=== PATIENT | male | born 1955 | race Caucasian/White ===

== ENCOUNTER 2022-10-19 14:42 | Outpatient (CLI) | payer MEDICARE | END 2022-10-19 14:43 | disposition home or self-care (01) | LOC: TBSIIMAG 14:42 | PROVIDERS: ATTEND Neurological Surgery | DX: M54.16 Radiculopathy, lumbar region (principal); Z98.890 Other specified postprocedural states | CPT/HCPCS: 72100 ==

== ENCOUNTER 2022-11-08 12:42 | Outpatient (CLI) | payer MEDICARE, OTHER ==
[~2022-11-08 12:42] MED LIST: Magnevist 469MG/ML 20 ML VIAL ONE
== END 2022-11-08 12:43 | disposition home or self-care (01) ==
LOC: TBSIIMAG 12:42
PROVIDERS: ATTEND Neurological Surgery
DX: M54.16 Radiculopathy, lumbar region (principal); Z98.890 Other specified postprocedural states
CPT/HCPCS: 72158; 82565

== ENCOUNTER 2022-12-10 07:33 | Outpatient (CLI) | payer MEDICARE, OTHER ==
[2022-12-10] MEDS ORDERED: Iopamidol 370 76% 100 ML VIAL ONE (11:07)
== END 2022-12-10 07:34 | disposition home or self-care (01) ==
LOC: BICCT 07:33
PROVIDERS: ATTEND Surgery
DX: R18.8 Other ascites (principal); I74.5 Embolism and thrombosis of iliac artery
CPT/HCPCS: 74177; 82565; Q9967

== ENCOUNTER 2024-08-01 09:31 | Inpatient (IN) | payer MEDICARE, OTHER ==
[2024-08-01] MEDS ORDERED: Activated Charcoal (AQUA) 25 GM/120 ML TUBE ONE (10:43)
[2024-08-01 10:58] LABS: Actual Bicarbonate (HCO3v) 18.9 mEq/L (22-28); Analyzer IN Cardio ER; Base Excess -5.7 mEq/L (-2.0 to +3.0); Calcium, Ionized (venous) 1.12 mmol/L (1.16-1.32); Chloride (VBG) 102 mmol/L (98-106); Hematocrit-VBG 49 % (42.0-52.0); Hemoglobin (Hb) 16.8 g/dL (12.6-17.4); Potassium (VBG) 4.04 mmol/L (3.70-5.30); Sodium 141 mmol/L (133-146); pH (venous) 7.352 (7.32-7.43)
[2024-08-01 11:01] LABS: #Basophils 0.04 10x3/uL (0.0-0.2); %Basophils 0.4 % (0.0-1.0); %Eosinophils 0.6 % (0.0-10.0); %Lymphocytes 8.8 % (21.0-51.0); %Monocytes 3.5 % (0.0-10.0); %Neutrophils 86.4 % (42.0-75.0); Hematocrit 44.8 % (42.0-52.0); Hemoglobin 15.6 g/dL (14.0-18.0); Mean Corpuscular HGB CONC 34.8 g/dL (32.0-36.0); Mean Corpuscular Hemoglobin 31.3 pg (27.0-31.0); Mean Corpuscular Volume 89.8 fL (78.0-98.0); Mean Platelet Volume 10.5 fL (7.4-10.4); Platelet Count 277 10x3/uL (130-400); RBC Distribution Width 12.7 % (11.5-14.5); Red Blood Cell (RBC) Count 4.99 mill/uL (4.70-6.10)
[2024-08-01 11:29] LABS: ALT (SGPT) 7 U/L (8-55); AST (SGOT) 15 U/L (5-34); Albumin 4.1 g/dL (3.4-4.8); Alkaline Phosphatase 52 U/L (40-110); Anion Gap 21 mmol/L (10-20); BUN (Urea Nitrogen) 24 mg/dL (8.4-25.7); Bilirubin, Total 0.5 mg/dL (0.2-1.2); Calc. Creatinine Clearance 0 mL/min (70-130); Calcium 9.3 mg/dL (7.8-10.44); Carbon Dioxide 18 mmol/L (23-31); Chloride 106 mmol/L (98-107); Estimated GFR 77; Globulin 3.1 g/dL (2.4-3.5); Glucose 219 mg/dL (83-110); Potassium 3.6 mmol/L (3.5-5.1); Protein, Total 7.2 g/dL (5.8-8.1); Sodium 141 mmol/L (136-145)
[2024-08-01] MEDS ORDERED: CALCIUM GLUC 1 GM/NS 50 ML IV Bag ONE ×3 (11:47→12:43)
[2024-08-01] MEDS ORDERED: Magnesium 2 GM/50 ML BAG (IN WATER) ONE (11:49)
[2024-08-01] MEDS ORDERED: Acetaminophen 325 MG TAB PO PRN (12:41)
[2024-08-01] MEDS ORDERED: NS 0.9% w/ 20 MEQ KCL 1,000 ML ONE (12:44)
[2024-08-01 15:26] VITALS: BMI 30.8
[2024-08-01] MEDS: Cyanide Antidote Kit IVPB SCH (15:47)
[2024-08-01] MEDS: Calcium Gluconate 13.8 MEQ, Admixture Fee 1 EACH in Sodium Chloride 0.9% 100 ML IVPB SCH (15:48)
[2024-08-01] MEDS: Scopolamine 1 mg/72 hour Patch TD SCH ×2 (15:49→23:02)
[2024-08-01 17:42] LABS: Actual Bicarbonate (HCO3v) 23.9 mEq/L (22-28); Base Excess -1.1 mEq/L (-2.0 to +3.0); Calcium, Ionized (venous) 1.15 mmol/L (1.16-1.32); Chloride (VBG) 106 mmol/L (98-106); Hematocrit-VBG 43 % (42.0-52.0); Hemoglobin (Hb) 14.7 g/dL (12.6-17.4); Potassium (VBG) 4.42 mmol/L (3.70-5.30); Sodium 140 mmol/L (133-146)
[2024-08-01 18:07] LABS: Lactic Acid 2.78 mmol/L (0.5-2.2)
[2024-08-02 06:01] LABS: #Basophils 0.03 10x3/uL (0.0-0.2); %Basophils 0.4 % (0.0-1.0); %Eosinophils 1.5 % (0.0-10.0); %Lymphocytes 7.7 % (21.0-51.0); %Monocytes 6.9 % (0.0-10.0); %Neutrophils 83.2 % (42.0-75.0); Hematocrit 41.7 % (42.0-52.0); Hemoglobin 14.2 g/dL (14.0-18.0); Mean Corpuscular HGB CONC 34.1 g/dL (32.0-36.0); Mean Corpuscular Hemoglobin 31.3 pg (27.0-31.0); Mean Corpuscular Volume 91.9 fL (78.0-98.0); Mean Platelet Volume 10.4 fL (7.4-10.4); Platelet Count 238 10x3/uL (130-400); RBC Distribution Width 13.2 % (11.5-14.5); Red Blood Cell (RBC) Count 4.54 mill/uL (4.70-6.10)
[2024-08-02 06:27] LABS: Anion Gap 12 mmol/L (10-20); BUN (Urea Nitrogen) 18 mg/dL (8.4-25.7); Calc. Creatinine Clearance 84 mL/min (70-130); Carbon Dioxide 25 mmol/L (23-31); Chloride 111 mmol/L (98-107); Estimated GFR 78; Glucose 104 mg/dL (83-110); Potassium 4.6 mmol/L (3.5-5.1); Sodium 143 mmol/L (136-145)
[2024-08-02 07:57] VITALS: TEMP 98.3
[2024-08-02] MEDS: FLU (Fluad Triv) TS24-25 (65UP)/MF59C/PF 45 MCG/0.5 ML Syringe IM ONE (11:22)
[2024-08-02] MEDS: Enoxaparin 40 MG (0.4 mL) SYRINGE SC SCH (11:22)
[2024-08-02] MEDS: Tamsulosin HCl 0.4 MG CAP PO SCH (11:23)
[2024-08-02] MEDS: Lisinopril 5 MG TAB PO SCH (14:19)
[2024-08-02 14:42] LABS: Lactic Acid 1.86 mmol/L (0.5-2.2)
[2024-08-02 14:49] VITALS: BP 130/73
[2024-08-03] MEDS ORDERED: Lisinopril 10 MG TAB PO SCH (09:00)
[2024-08-03] MEDS ORDERED: Lisinopril 5 MG TAB PO SCH (09:00)
[2024-08-03] MEDS ORDERED: Tamsulosin HCl 0.4 MG CAP PO SCH (09:00)
== END 2024-08-02 16:25 | disposition home or self-care (01) | DRG 918 ==
LOC: ERS 09:31 → IMCU/EMU 12:23
PROVIDERS: ADMIT Internal Medicine; ATTEND Internal Medicine
DX: T65.891A Toxic effect of other specified substances, accidental (unintentional), initial encounter (principal); I10 Essential (primary) hypertension; R94.31 Abnormal electrocardiogram [ECG] [EKG]; X58.XXXA Exposure to other specified factors, initial encounter
CPT/HCPCS: 36415; 80048; 80053; 82805; 83605; 83735; 85025; 93005; 93010; 96365; 96366; 96368; 96375; J0612; J0613; J3475; J3480

== ENCOUNTER 2024-09-25 11:57 | Outpatient (CLI) | payer MEDICARE, OTHER ==
[2024-09-25 13:43] LABS: #Basophils 0.03 10x3/uL (0.0-0.2); %Basophils 0.4 % (0.0-1.0); %Monocytes 5.5 % (0.0-10.0); %Neutrophils 80.7 % (42.0-75.0); Hematocrit 47.4 % (42.0-52.0); Hemoglobin 16.1 g/dL (14.0-18.0); Mean Corpuscular Hemoglobin 30.8 pg (27.0-31.0); Mean Corpuscular Volume 90.6 fL (78.0-98.0); Mean Platelet Volume 10.2 fL (7.4-10.4); Platelet Count 282 10x3/uL (130-400); RBC Distribution Width 11.9 % (11.5-14.5); Red Blood Cell (RBC) Count 5.23 mill/uL (4.70-6.10)
[2024-09-25 13:58] LABS: Prothrombin Time 12.8 sec (12.0-14.7)
[2024-09-25 14:07] LABS: Anion Gap 15 mmol/L (10-20); BUN (Urea Nitrogen) 15 mg/dL (8.4-25.7); Calc. Creatinine Clearance 0 mL/min (70-130); Calcium 9.7 mg/dL (7.8-10.44); Carbon Dioxide 21 mmol/L (23-31); Chloride 108 mmol/L (98-107); Estimated GFR 92; Glucose 100 mg/dL (83-110); Potassium 4.3 mmol/L (3.5-5.1); Sodium 140 mmol/L (136-145)
== END 2024-09-25 11:58 | disposition home or self-care (01) ==
LOC: LABBT 11:57
PROVIDERS: ATTEND Urology
DX: Z01.812 Encounter for preprocedural laboratory examination (principal); N28.89 Other specified disorders of kidney and ureter
CPT/HCPCS: 80048; 85025; 85610; 85730; 87086

== ENCOUNTER 2024-10-02 05:58 | Observation (INO) | payer MEDICARE, OTHER ==
[2024-09-25 12:25] VITALS: BMI 28.4
[2024-10-02] MEDS ORDERED: Iopamidol 15 ML ONE (06:48)
[2024-10-02] MEDS ORDERED: Lidocaine 2% PF 100 mg/5 ml Syringe ONE (06:59)
[2024-10-02] MEDS ORDERED: PROPOFOL 20 ML ONE (07:00)
[2024-10-02] MEDS ORDERED: fentaNYL PF 100 MCG/2 ML SYRINGE ONE (07:00)
[2024-10-02] MEDS ORDERED: Lidocaine 2% PF 5 ML VIAL ONE (07:00)
[2024-10-02] MEDS ORDERED: CEFAZOLIN 2 GM VIAL ONE (07:17)
[2024-10-02] MEDS ORDERED: Sodium Chloride 0.9% 100 ML ONE (07:18)
[2024-10-02] MEDS ORDERED: Dexamethasone 20 MG/5 ML VIAL ONE (07:35)
[2024-10-02] MEDS ORDERED: Ondansetron PF 4 MG/2 ML Vial ONE (07:35)
[2024-10-02] MEDS ORDERED: ePHEDrine Sulfate 50 MG/10 ML VIAL ONE (07:38)
[2024-10-02] MEDS ORDERED: Morphine 2 MG/ML VIAL SLOW IVP PRN (09:15)
[2024-10-02] MEDS ORDERED: Ondansetron PF 4 MG/2 ML Vial IVP PRN (09:15)
[2024-10-02] MEDS ORDERED: HYDROcodone/Acetaminophen 5/325 mg Tablet PO PRN ×4 (09:15→13:25)
[2024-10-02] MEDS ORDERED: Promethazine HCl 25 MG/ML VIAL IVPB PRN (09:15)
[2024-10-02] MEDS ORDERED: HYDROcodone/Acetaminophen 5/325 mg Tablet ONE ×2 (09:21→13:13)
[2024-10-02] MEDS ORDERED: Ondansetron ODT 4 MG TAB ONE (13:13)
[2024-10-02 13:21] LABS: #Basophils Less than 0.03 10x3/uL (0.0-0.2); #Eosinophils Less than 0.03 10x3/uL (0.0-0.7); %Basophils 0.2 % (0.0-1.0); %Lymphocytes 1.8 % (21.0-51.0); %Neutrophils 96.7 % (42.0-75.0); Hematocrit 39.6 % (42.0-52.0); Hemoglobin 13.8 g/dL (14.0-18.0); Mean Corpuscular HGB CONC 34.8 g/dL (32.0-36.0); Mean Corpuscular Hemoglobin 31.6 pg (27.0-31.0); Mean Corpuscular Volume 90.6 fL (78.0-98.0); Mean Platelet Volume 9.7 fL (7.4-10.4); Platelet Count 240 10x3/uL (130-400); RBC Distribution Width 11.9 % (11.5-14.5); Red Blood Cell (RBC) Count 4.37 mill/uL (4.70-6.10)
[2024-10-02] MEDS ORDERED: Ondansetron ODT 4 MG TAB PO PRN (13:24)
[2024-10-02] MEDS ORDERED: Acetaminophen 325 MG TAB PO PRN ×2 (13:24)
[2024-10-02] MEDS: D5 1/2 NS w/20 mEq KCL 1,000 ML IV SCH (14:00)
[2024-10-02] MEDS ORDERED: traMADol HCl 50 MG TAB ONE (15:33)
[2024-10-02] MEDS ORDERED: traMADol HCl 50 MG TAB PO PRN (20:02)
[2024-10-02] MEDS: Tamsulosin HCl 0.4 MG CAP PO SCH (21:20)
[2024-10-02] MEDS: Lisinopril 5 MG TAB PO SCH (21:20)
[2024-10-02] MEDS: traMADol HCl 50 MG TAB PO PRN (21:21)
[2024-10-02] MEDS: traMADol HCl 50 MG TAB PO SCH (21:31)
[2024-10-03 05:04] LABS: #Basophils Less than 0.03 10x3/uL (0.0-0.2); #Eosinophils Less than 0.03 10x3/uL (0.0-0.7); %Basophils 0.1 % (0.0-1.0); %Lymphocytes 4.1 % (21.0-51.0); %Monocytes 7.5 % (0.0-10.0); %Neutrophils 87.7 % (42.0-75.0); Hematocrit 39.1 % (42.0-52.0); Hemoglobin 13.2 g/dL (14.0-18.0); Mean Corpuscular HGB CONC 33.8 g/dL (32.0-36.0); Mean Corpuscular Hemoglobin 31.5 pg (27.0-31.0); Mean Corpuscular Volume 93.3 fL (78.0-98.0); Mean Platelet Volume 9.9 fL (7.4-10.4); Platelet Count 229 10x3/uL (130-400); RBC Distribution Width 12.3 % (11.5-14.5); Red Blood Cell (RBC) Count 4.19 mill/uL (4.70-6.10)
[2024-10-03 05:19] LABS: Anion Gap 12 mmol/L (10-20); BUN (Urea Nitrogen) 18 mg/dL (8.4-25.7); Calc. Creatinine Clearance 95 mL/min (70-130); Calcium 8.3 mg/dL (7.8-10.44); Carbon Dioxide 21 mmol/L (23-31); Chloride 104 mmol/L (98-107); Estimated GFR 93; Glucose 131 mg/dL (83-110); Potassium 4.4 mmol/L (3.5-5.1); Sodium 133 mmol/L (136-145)
[2024-10-03 08:44] VITALS: BP 139/75; TEMP 97.7
== END 2024-10-03 11:48 | disposition home or self-care (01) ==
LOC: SDC 05:58 → SURG B 12:58
PROVIDERS: ADMIT Urology; ATTEND Urology
PROC: 0T778DZ Dilation of Left Ureter with Intraluminal Device, Via Natural or Artificial Opening Endoscopic (ICD-10-PCS; principal; 2024-10-02)
DX: C65.2 Malignant neoplasm of left renal pelvis (principal); N40.0 Benign prostatic hyperplasia without lower urinary tract symptoms; N35.919 Unspecified urethral stricture, male, unspecified site; I10 Essential (primary) hypertension; I25.10 Atherosclerotic heart disease of native coronary artery without angina pectoris; E78.00 Pure hypercholesterolemia, unspecified; F32.A Depression, unspecified; F41.9 Anxiety disorder, unspecified; M19.90 Unspecified osteoarthritis, unspecified site; J45.909 Unspecified asthma, uncomplicated; Z95.5 Presence of coronary angioplasty implant and graft; Z85.828 Personal history of other malignant neoplasm of skin; Z90.89 Acquired absence of other organs; Z88.0 Allergy status to penicillin; Z91.018 Allergy to other foods; Z79.899 Other long term (current) drug therapy
CPT/HCPCS: 52332; 74420; 80048; 85025 ×2; C2617; J1100; J2003; J2405; J2704; J3480 ×2; Q0162; Q9967; 36415; 88112; 88305

== ENCOUNTER 2025-03-19 08:41 | Outpatient (CLI) | payer MEDICARE, OTHER ==
[2025-03-19 09:53] LABS: Anion Gap 15 mmol/L (10-20); BUN (Urea Nitrogen) 29 mg/dL (8.4-25.7); Calc. Creatinine Clearance 0 mL/min (70-130); Calcium 9.1 mg/dL (7.8-10.44); Carbon Dioxide 21 mmol/L (23-31); Chloride 106 mmol/L (98-107); Glucose 105 mg/dL (83-110); INR-International Normal Ratio 1.0; Potassium 4.4 mmol/L (3.5-5.1); Prothrombin Time 13.6 sec (12.0-14.7); Sodium 138 mmol/L (136-145)
[2025-03-19 09:54] LABS: PTT 26.7 sec (22.9-36.1)
[2025-03-19 10:10] LABS: #Basophils Less than 0.03 10x3/uL (0.0-0.2); #Eosinophils 0.11 10x3/uL (0.0-0.7); #Monocytes 0.32 10x3/uL (0.11-0.59); #Neutrophils 4.82 10x3/uL (1.40-6.50); %Basophils 0.3 % (0.0-1.0); %Eosinophils 1.9 % (0.0-10.0); %Lymphocytes 10.8 % (21.0-51.0); %Monocytes 5.4 % (0.0-10.0); %Neutrophils 81.4 % (42.0-75.0); Hematocrit 44.0 % (42.0-52.0); Hemoglobin 14.5 g/dL (14.0-18.0); Mean Corpuscular Hemoglobin 30.2 pg (27.0-31.0); Mean Corpuscular Volume 91.7 fL (78.0-98.0); Platelet Count 236 10x3/uL (130-400); Red Blood Cell (RBC) Count 4.80 mill/uL (4.70-6.10); White Blood Cell (WBC) Count 5.88 10x3/uL (4.8-10.8)
[2025-03-19 10:55] LABS: Burr Cells SLIGHT = 2-5 cells HPF (0-1); Platelet Adequacy Comment Platelets Normal; Polychromasia SLIGHT = 2-3 cells HPF (0-2)
== END 2025-03-19 08:42 | disposition home or self-care (01) ==
LOC: LABBT 08:41
PROVIDERS: ATTEND Urology
DX: Z01.818 Encounter for other preprocedural examination (principal); C65.2 Malignant neoplasm of left renal pelvis
CPT/HCPCS: 80048; 85025; 85610; 85730; 87086; 93005; 93010

== ENCOUNTER 2025-03-26 11:14 | Observation (INO) | payer MEDICARE, OTHER ==
[2025-03-26] MEDS ORDERED: LevoFLOXacin D5W 500 mg (100 mL) BAG ONE (12:33)
[2025-03-26] MEDS ORDERED: Lidocaine 2% PF 100 mg/5 ml Syringe ONE (15:06)
[2025-03-26] MEDS ORDERED: Ondansetron PF 4 MG/2 ML Vial ONE (15:06)
[2025-03-26] MEDS ORDERED: PROPOFOL 20 ML ONE (15:07)
[2025-03-26] MEDS ORDERED: fentaNYL PF 100 MCG/2 ML SYRINGE ONE (15:07)
[2025-03-26] MEDS ORDERED: Rocuronium Bromide 10 MG/ML (10ML VIAL) ONE (15:43)
[2025-03-26] MEDS ORDERED: SUGAMMADEX SODIUM 200 MG/2 ML VIAL ONE (15:54)
[2025-03-26] MEDS ORDERED: PHENYLEPHRINE-NS 100 MCG/ML 10 ML SYRINGE ONE (17:06)
[2025-03-26] MEDS ORDERED: Oxybutynin 5 MG TAB PO PRN (17:40)
[2025-03-26] MEDS ORDERED: Acetaminophen 500 MG TAB PO PRN (17:40)
[2025-03-26 19:59] VITALS: BMI 31.4
[2025-03-26] MEDS: D5 1/2 NS w/20 mEq KCL 1,000 ML IV SCH (20:28)
[2025-03-26 20:41] LABS: #Basophils Less than 0.03 10x3/uL (0.0-0.2); #Eosinophils Less than 0.03 10x3/uL (0.0-0.7); #Monocytes 0.06 10x3/uL (0.11-0.59); #Neutrophils 10.30 10x3/uL (1.40-6.50); %Basophils 0.1 % (0.0-1.0); %Eosinophils 0.1 % (0.0-10.0); %Lymphocytes 2.9 % (21.0-51.0); %Monocytes 0.6 % (0.0-10.0); %Neutrophils 95.8 % (42.0-75.0); Hematocrit 41.4 % (42.0-52.0); Hemoglobin 14.1 g/dL (14.0-18.0); Mean Corpuscular Hemoglobin 30.7 pg (27.0-31.0); Mean Corpuscular Volume 90.0 fL (78.0-98.0); Platelet Count 221 10x3/uL (130-400); Red Blood Cell (RBC) Count 4.60 mill/uL (4.70-6.10); White Blood Cell (WBC) Count 10.74 10x3/uL (4.8-10.8)
[2025-03-26 20:53] LABS: Anion Gap 15 mmol/L (10-20); BUN (Urea Nitrogen) 18 mg/dL (8.4-25.7); Calc. Creatinine Clearance 84 mL/min (70-130); Calcium 8.6 mg/dL (7.8-10.44); Carbon Dioxide 22 mmol/L (23-31); Chloride 108 mmol/L (98-107); Glucose 158 mg/dL (83-110); Potassium 4.0 mmol/L (3.5-5.1); Sodium 141 mmol/L (136-145)
[2025-03-27 09:43] VITALS: BP 157/82; TEMP 98
[2025-03-27] MEDS: Lisinopril 10 MG TAB PO SCH (09:43)
== END 2025-03-27 12:30 | disposition home or self-care (01) ==
LOC: SDC 11:14 → SURG B 17:57
PROVIDERS: ADMIT Urology; ATTEND Urology
PROC: 0TBC8ZZ Excision of Bladder Neck, Via Natural or Artificial Opening Endoscopic (ICD-10-PCS; principal; 2025-03-26)
DX: C67.5 Malignant neoplasm of bladder neck (principal); C65.2 Malignant neoplasm of left renal pelvis; I10 Essential (primary) hypertension; I25.10 Atherosclerotic heart disease of native coronary artery without angina pectoris; E78.5 Hyperlipidemia, unspecified; N40.0 Benign prostatic hyperplasia without lower urinary tract symptoms; Z95.5 Presence of coronary angioplasty implant and graft; Z91.018 Allergy to other foods; Z88.0 Allergy status to penicillin; Z79.899 Other long term (current) drug therapy
CPT/HCPCS: 52500; 80048; 85025; G0378 ×2; J1100; J1956; J2003; J2250; J2405; J2704; J3480; 36415; 88305

== ENCOUNTER 2025-05-29 09:26 | Outpatient (CLI) | payer MEDICARE, OTHER ==
[2025-05-29] MEDS ORDERED: Iopamidol 370 76% 100 ML VIAL ONE (12:50)
== END 2025-05-29 09:27 | disposition home or self-care (01) ==
LOC: CT 09:26
PROVIDERS: ATTEND Internal Medicine Hematology & Oncology
DX: C67.8 Malignant neoplasm of overlapping sites of bladder (principal); C64.2 Malignant neoplasm of left kidney, except renal pelvis; C66.2 Malignant neoplasm of left ureter; Z90.5 Acquired absence of kidney
CPT/HCPCS: 36592; 71260; 74177; J1642; Q9967